=== PATIENT | female | born 1990 | race Caucasian/White ===

== ENCOUNTER 2021-08-22 16:00 | Emergency (ER) | payer BC ==
[~2021-08-22] VITALS: Ht 152.4 cm; Wt 54.4 kg
[2021-08-22 16:00] VITALS: BP_SYST 122
--- NOTE | 2021-08-22 16:00 | NUR ---
Pt triaged and placed in rm 2.
--- NOTE | 2021-08-22 16:15 | NUR ---
PT STATES LEFT SIDED FLANK PAIN IN LAST 20 MINUTES AND NOW WITH HEADACHES. PT STATES SHE HAS CLOUDY URINE. PT ASSISTED TO RESTROOM FOR UA. PT IS ANXIOUS AND FIDGETTY
--- NOTE | 2021-08-22 16:15 | NUR ---
Patient to ER bed 2 for evaluation. Side rails up. Report given to Michelle NICHOLS.
--- NOTE | 2021-08-22 16:50 | NUR ---
TAKEN TO RADIOLOGY VIA WHEELCHAIR
--- NOTE | 2021-08-22 17:20 | NUR ---
TAKEN TO RADIOLOGY VIA WHEELCHAIR
[2021-08-22] MEDS: NACL 0.9% 1,000 ML IV ONE (17:32)
[2021-08-22 17:34] LABS: BASOPHILS % (AUTO) 0.4 % (0.0-2.0); HEMATOCRIT 37.2 % (36-48); HEMOGLOBIN 12.1 g/dL (12.0-16.0); LYMPHOCYTES # (AUTO) 0.6 K/uL (1.0-5.5); LYMPHOCYTES % (AUTO) 4.9 % (20.5-51.5); MEAN CORPUSCULAR HEMOGLOBIN 28 pg (27-31); MEAN CORPUSCULAR HGB CONC 33 % (32-36); MEAN CORPUSCULAR VOLUME 86 fL (79.0-98.0); MONOCYTES # (AUTO) 0.8 K/uL (0.0-1.0); MONOCYTES % (AUTO) 6.7 % (1.7-9.3); NEUTROPHILS # (AUTO) 9.9 K/uL (1.8-7.7); PLATELET COUNT (AUTO) 147 K/uL (130-430); RED BLOOD CELL COUNT(AUTO) 4.31 MIL/uL (4.2-6.2); RED CELL DISTRIBUTION WIDTH 13.5 % (9.0-15.0); WHITE BLOOD COUNT (AUTO) 11.3 K/uL (4.8-10.8)
[2021-08-22] MEDS: KETOROLAC TROMETHAMINE 30 MG VIAL IVP ONE (17:34)
[2021-08-22] MEDS: ONDANSETRON HCL 4 MG/2 ML VIAL IVP ONE (17:36)
[2021-08-22 17:41] LABS: BILIRUBIN,URINE NEGATIVE (NEGATIVE); BLOOD, URINE 1+ (NEGATIVE); COLOR,URINE YELLOW (YELLOW); GLUCOSE,URINE NEGATIVE (NEGATIVE); KETONES,URINE TRACE (NEGATIVE); LEUKOCYTE ESTERASE ,URINE 2+ (NEGATIVE); NITRITE, URINE NEGATIVE (NEGATIVE); PH,URINE 8.5 (5.0-8.0); PROTEIN URINE TRACE (NEGATIVE); UROBILINOGEN,URINE 0.2 (0.2-1.0)
[2021-08-22 17:45] LABS: CANNABINOID, URINE POSITIVE (NEG <=50); OPIATE, URINE NEGATIVE (NEG <=100); PHENCYCLIDINE SCREEN,URINE NEGATIVE (NEG <=25); URINE OXYCODONE SCREEN NEGATIVE (NEG <=100)
[2021-08-22 17:46] LABS: BARBITURATE, URINE NEGATIVE (NEG <=200); BENZODIAZEPINE, URINE NEGATIVE (NEG <=150); COCAINE, URINE NEGATIVE (NEG <=150); METHAMPHETAMINES SCREEN,URINE NEGATIVE (NEG <=500); UR TRICYCLIC ANTIDEPRESSANTS NEGATIVE (NEG <=300); URINE AMPHETAMINE NEGATIVE (NEG <=500); URINE METHADONE NEGATIVE (NEG <=200); URINE PROPOXYPHENE SCREEN NEGATIVE (NEG <=300)
[2021-08-22 17:49] LABS: CLARITY/URINE CLOUDY (CLEAR)
--- NOTE | 2021-08-22 18:00 | NUR ---
NOTIFIED THAT PT REFUSED TO DO TRANSVAGINAL EXAM ULTRASOUND. DR DOWLING AWARE
[2021-08-22 18:02] LABS: BACTERIA,URINE FEW /HPF (None Seen); RBC,URINE 0-3 /HPF (0-3); WBC,URINE 50-80 /HPF (0-3)
[2021-08-22 18:22] LABS: CALCIUM 8.5 mg/dL (8.4-11.0); CREATININE 0.94 mg/dL (0.55-1.30); POTASSIUM 3.5 mmol/L (3.5-5.1); TOTAL BILIRUBIN 0.4 mg/dL (0.0-1.0)
[2021-08-22 18:23] LABS: ALBUMIN 3.7 g/dL (3.4-4.8)
--- NOTE | 2021-08-22 18:40 | NUR ---
RESTING QUIETLY, NO CHANGES
--- NOTE | 2021-08-22 19:10 | NUR ---
REPORT GIVEN TO SAHRA TO ASSUME CARE
[2021-08-22] MEDS ORDERED: IBUP-1969 PO (19:38)
[2021-08-22] MEDS ORDERED: CEPH-548 PO (19:38)
[2021-08-22 20:24] VITALS: BP_SYST 118
== END 2021-08-22 19:10 | disposition home or self-care (01) ==
LOC: EDBD 16:00 → SED 16:00
DX: N12 Tubulo-interstitial nephritis, not specified as acute or chronic (principal); Z79.899 Other long term (current) drug therapy
CPT/HCPCS: 36415; 74176; 76376; 76856; 80053; 80307; 81000; 81025; 83690; 85025; 87086; 96361; 96374; 96375; 99284; J1885; J2405; J7030

== ENCOUNTER 2022-10-20 14:26 | Emergency (ER) | payer BC, MEDICAID ==
[~2022-10-20 14:26] MED LIST: CEPH-548 PO; IBUP-1969 PO
[2022-10-20 15:23] VITALS: BP_SYST 106
--- NOTE | 2022-10-20 15:31 | NUR ---
PT TRIAGED. PT STABLE. PLACED IN ER WAITING ROOM.
--- NOTE | 2022-10-20 16:15 | NUR ---
Patient to ER bed CH1 to gown for evaluation. Side rails up.
--- NOTE | 2022-10-20 16:49 | NUR ---
PT WALKED OUT OF ER
[2022-10-20 16:50] VITALS: BP_SYST 106
== END 2022-10-20 16:49 | disposition left against medical advice (07) ==
LOC: SED 14:26
DX: M79.10 Myalgia, unspecified site (principal); R53.1 Weakness; R50.9 Fever, unspecified; Z53.21 Procedure and treatment not carried out due to patient leaving prior to being seen by health care provider
CPT/HCPCS: 99281